=== PATIENT | male | born 1990 | race Two or more races ===

== ENCOUNTER 2018-02-01 08:05 | Emergency (ER) | payer MEDICAID ==
[~2018-02-01] VITALS: Ht 170.2 cm; Wt 71.4 kg
[2018-02-01 08:28] VITALS: Ht 170.2 cm; Wt 71.4 kg
[2018-02-01 09:29] VITALS: BP 142/69
== END 2018-02-01 09:29 | disposition home or self-care (01) ==
LOC: ED 08:05
DX: H10.12 Acute atopic conjunctivitis, left eye (principal)

== ENCOUNTER 2018-03-02 19:03 | Emergency (ER) | payer MEDICAID ==
[~2018-03-02] VITALS: Ht 170.2 cm; Wt 72.1 kg
[2018-03-02 19:24] VITALS: Ht 170.2 cm; Wt 72.1 kg
[2018-03-02 21:21] VITALS: BP 120/76
== END 2018-03-02 21:21 | disposition home or self-care (01) ==
LOC: ED 19:03
DX: R21 Rash and other nonspecific skin eruption (principal); I10 Essential (primary) hypertension

== ENCOUNTER 2018-03-18 19:15 | Emergency (ER) | payer MEDICAID ==
[~2018-03-18] VITALS: Ht 170.2 cm; Wt 69.8 kg
[2018-03-18 19:24] VITALS: Ht 170.2 cm; Wt 69.8 kg
[2018-03-18 21:08] VITALS: BP 117/77
== END 2018-03-18 21:08 | disposition home or self-care (01) ==
LOC: ED 19:15
DX: B34.9 Viral infection, unspecified (principal)

== ENCOUNTER 2018-06-26 15:08 | Emergency (ER) | payer MEDICAID ==
[~2018-06-26] VITALS: Ht 170.2 cm; Wt 68.5 kg
[2018-06-26 15:36] VITALS: BP 137/97; Ht 170.2 cm; Wt 68.5 kg
== END 2018-06-26 18:17 | disposition home or self-care (01) ==
LOC: ED 15:08
DX: H66.91 Otitis media, unspecified, right ear (principal)
CPT/HCPCS: J0696

== ENCOUNTER 2018-07-05 01:20 | Emergency (ER) | payer MEDICAID ==
[~2018-07-05] VITALS: Ht 172.7 cm; Wt 68.9 kg
[2018-07-05 01:42] VITALS: Ht 172.7 cm; Wt 68.9 kg
[2018-07-05 03:30] LABS: UA SPECIFIC GRAVITY 1.025 (1.005-1.035); microscopic required? YES; urine erythrocyte TRACE (NEGATIVE)
[2018-07-05 04:46] VITALS: BP 120/83
== END 2018-07-05 05:00 | disposition home or self-care (01) ==
LOC: ED 01:20
PROVIDERS: Emergency Medicine
DX: M54.5 Low back pain (principal); R11.2 Nausea with vomiting, unspecified; R30.9 Painful micturition, unspecified
CPT/HCPCS: J1885; Q0162

== ENCOUNTER 2018-12-24 12:56 | Emergency (ER) | payer MEDICAID ==
[~2018-12-24] VITALS: Ht 167.6 cm; Wt 70.8 kg
[2018-12-24 13:04] VITALS: BP 140/72; Ht 167.6 cm; Wt 70.8 kg
== END 2018-12-24 15:10 | disposition home or self-care (01) ==
LOC: ED 12:56
DX: J06.9 Acute upper respiratory infection, unspecified (principal); R11.10 Vomiting, unspecified; R51 Headache

== ENCOUNTER 2019-09-06 13:06 | Emergency (ER) | payer MEDICAID ==
[~2019-09-06] VITALS: Ht 172.7 cm; Wt 77.6 kg
[2019-09-06 13:24] VITALS: Ht 172.7 cm; Wt 77.6 kg
[2019-09-06 14:30] VITALS: BP 129/71
== END 2019-09-06 14:30 | disposition home or self-care (01) ==
LOC: ED 13:06
DX: J98.01 Acute bronchospasm (principal); H66.91 Otitis media, unspecified, right ear; F17.210 Nicotine dependence, cigarettes, uncomplicated
CPT/HCPCS: 99406

== ENCOUNTER 2020-02-22 13:43 | Emergency (ER) | payer SELFPAY ==
[~2020-02-22] VITALS: Ht 170.2 cm; Wt 72.1 kg
[2020-02-22 13:50] VITALS: Ht 170.2 cm; Wt 72.1 kg
[2020-02-22 14:48] LABS: BASOPHIL % 0.4 % (0-2); PLATELET COUNT 332 x10^3mcL (130-400); RED CELL DISTRIBUTION WIDTH 13.4 % (11.5-14.5)
[2020-02-22 15:01] LABS: CALCIUM 9.2 mg/dL (8.5-10.1); CARBON DIOXIDE 29.6 mmol/L (21-32); CHLORIDE SERUM 103 mmol/L (98-107); CREATININE SERUM 1.1 mg/dL (0.7-1.3); GFR1 > 60 mL/min; GLUCOSE SERUM 82 mg/dL (74-106); SODIUM SERUM 142 mmol/L (136-145)
[2020-02-22 15:06] LABS: ALBUMIN 4.4 g/dL (3.4-5.0); ALKALINE PHOSPHATASE 72 U/L (46-116); ALT/SGPT 32 U/L (16-63); AST/SGOT 18 U/L (15-37); BILIRUBIN TOTAL 0.6 mg/dL (0.20-1.00); LIPASE 727 IU/L (73-393); TOTAL PROTEIN, SERUM 7.9 g/dL (6.4-8.2)
[2020-02-22 15:47] VITALS: BP 123/70
== END 2020-02-22 15:48 | disposition home or self-care (01) ==
LOC: ED 13:43
PROVIDERS: Emergency Medicine
DX: K85.90 Acute pancreatitis without necrosis or infection, unspecified (principal); F10.10 Alcohol abuse, uncomplicated; R06.02 Shortness of breath
CPT/HCPCS: J2270; J2405; J3490; J7030